=== PATIENT | female | born 1985 | race Caucasian/White ===

== ENCOUNTER → 2016-03-21 | Outpatient (CLI) | payer OTHER ==
[~2016-03-21] MED LIST: CYCL10TA6 PO; IBUP-1050 PO; METH4PAK PO; PHEN-876 PO; SULF800T23 PO
--- NOTE | 2016-03-21 13:32 | DIAGNOSTIC IMAGING REPORT ---
RIBS UNILATERAL WITH PA CHEST CLINICAL HISTORY: Right sided rib pain. COMPARISON STUDY: Chest radiograph March 18, 2016. FINDINGS: There is no pneumothorax or pleural effusion. Lungs are clear. Cardiac size is normal. Mediastinal contours are normal. Pulmonary vascularity is normal. No acute right rib fractures are identified. There are cholecystectomy clips. IMPRESSION: No pneumothorax. No acute right rib fractures. Electronically signed by: Jarvis Pena M.D. 03/21/2016 1:30 PM
== END | disposition home or self-care (01) ==
LOC: C.RAD 12:40
PROVIDERS: ATTEND Internal Medicine
DX: R07.81 Pleurodynia (principal)

== ENCOUNTER → 2016-05-26 | Outpatient (CLI) | payer OTHER ==
[2016-05-26 16:27] LABS: BASO % 0.5 %; BASO ABS # 0.04 K/uL (0-0.2); COMPLETE YES; EOS % 1.8 %; HEMATOCRIT 39.7 % (37-47); IG% 0.3 %; LYMPH % 43.9 %; LYMPH ABS # 3.44 K/uL (1.2-3.4); MEAN CORPUSCULAR HEMOGLOBIN 30.5 pg (25-34); MEAN CORPUSCULAR HGB CONC 34.3 g/dl (32-36); MEAN PLATELET VOLUME 9.5 fL (7.4-10.4); MONO % 7.3 %; NEUT % 46.2 %; PLATELET COUNT 298 K/uL (130-400); RED BLOOD COUNT 4.46 M/uL (4.2-5.4); WHITE BLOOD COUNT 7.84 K/uL (4.8-10.8)
[2016-05-26 16:39] LABS: ALT/SGPT 71 U/L (12-78); BLOOD UREA NITROGEN 7 mg/dl (7-18); CALCIUM 8.7 mg/dl (8.5-10.1); CARBON DIOXIDE 23 mmol/L (21-32); CHLORIDE 112 mmol/L (98-107); CREATININE 0.57 mg/dl (0.60-1.20); GLUCOSE 92 mg/dl (70-99); SODIUM 143 mmol/L (136-145)
[2016-05-26 16:49] LABS: ALB/GLOB RATIO 1.1 (0.9-2); ALKALINE PHOSPHATASE 49 U/L (45-117); AST/SGOT 41 U/L (15-37)
== END | disposition home or self-care (01) ==
LOC: C.LABBFT 12:35
PROVIDERS: ATTEND Internal Medicine
DX: Z00.00 Encounter for general adult medical examination without abnormal findings (principal); R42 Dizziness and giddiness

== ENCOUNTER 2016-10-09 22:23 | Emergency (ER) | payer OTHER ==
[~2016-10-09] VITALS: Ht 149.9 cm; Wt 71.8 kg
[~2016-10-09 22:23] MED LIST changes: -PHEN-876 PO; -SULF800T23 PO
[2016-10-09 22:39] VITALS: TEMP 36.9; Ht 149.9 cm; Wt 71.8 kg
[2016-10-09] MEDS ORDERED: PHEN-876 PO (22:52)
[2016-10-09] MEDS ORDERED: SULF800T23 PO (22:52)
--- NOTE | 2016-10-09 22:53 | EMERGENCY ROOM VISIT NOTE ---
History First contact with patient: 22:42 Chief Complaint: URINARY SYMPTOMS Stated Complaint: UTI - BLADDER INFECTION Nursing Triage Summary: "My urine is cloudy, it enriquez when I pee" sx started 1 week ago History of Present Illness The patient is a 31 year old female who presents to the Emergency Room with complaints of a possible urinary tract infection. The patient states that she has noticed for the past week that her urine has been cloudy and has had a foul odor. She reports that she has had burning with urination. She has felt feverish, but does not have a thermometer at home. She has been taking ibuprofen for symptoms. She does report a history of UTIs and states this feels similar. She denies abdominal pain or upper back pain. She denies any vaginal discharge. Review of Systems A complete 10 point review of systems was reviewed with the patient with pertinent positives and negatives as per history of present illness. All else were negative. Past Medical/Surgical History Surgical Problems: (1) History of cholecystectomy Family History Cancer Gallbladder disease Social History Smoking Status: Current Every Day Smoker Alcohol Use: none Marital Status: in relationship Housing Status: lives with family Occupation Status: employed Current/Historical Medications Scheduled Methylprednisolone (Medrol Dosepak), 1 PKT PO UD Phenazopyridine HCl (Pyridium), 200 MG PO TID Sulfa/Trimethoprim (Bactrim Ds 800MG/160MG), 1 TAB PO BID Scheduled PRN Cyclobenzaprine Hcl (Flexeril), 10 MG PO HS PRN for Sleep Ibuprofen (Advil), 800 MG PO for Pain Physical Exam Vital Signs Date Time Temp Pulse Resp B/P (MAP) Pulse Ox O2 Delivery O2 Flow Rate FiO2 10/09/16 22:39 36.9 62 18 137/82 98 Room Air Physical Exam VITALS: Vitals are noted on the nurse's note and reviewed by myself. Vital signs stable. GENERAL: This is a 31-year-old female, in no acute distress, nondiaphoretic, well-developed well-nourished. HEART: Regular rate and rhythm without murmurs gallops or rubs. LUNGS: Clear to auscultation bilaterally without wheezes, rales or rhonchi. ABDOMEN: Positive bowel sounds x 4. Soft, nontender to palpation. NEURO: Patient was alert and oriented to person place and time. Medical Decision & Procedures Medical Decision Differential diagnosis includes urinary tract infection, vaginal infection, among others. The patient was evaluated as above. Urine dip did show white blood cells. Patient reports her symptoms are similar to previous urinary tract infections. She will be treated with Bactrim and Pyridium pending urine culture. She verbalized understanding of my assessment and treatment plan and was discharged home in good condition. Medication Reconcilliation Current Medication List: was personally reviewed by me Blood Pressure Screening Patient's blood pressure: Normal blood pressure Impression Primary Impression: Symptoms of urinary tract infection Departure Information Dispostion Home / Self-Care Condition GOOD Prescriptions Phenazopyridine HCl (Pyridium) 200 Mg Tab 200 MG PO TID for 2 Days, #6 TAB Prov: Shannon Moreira PA-C 10/09/16 Sulfa/Trimethoprim (Bactrim Ds 800MG/160MG) Tab 1 TAB PO BID for 4 Days, #8 TAB Prov: Shannon Moreira PA-C 10/09/16 Referrals Kathy Pena M.D. (PCP) Patient Instructions My [facility] Additional Instructions You have been treated in the Emergency Department for a Urinary Tract Infection (UTI). You have been prescribed Bactrim to be taken twice daily for a total of 5 days. This is an antibiotic. All antibiotics have the potential to cause diarrhea. Stop this medication and contact a medical provider if you were to develop any significant adverse side effects including: wheezing, shortness of breath, passing out, vomiting, or a diffuse rash. Always take antibiotics as directed and COMPLETE the ENTIRE course regardless of the improvement of your symptoms. You have been prescribed Pyridium to be taken as prescribed. This medicine will help with the urinary symptoms that you have been experiencing. Be aware that Pyridium may turn your urine a red-orange or brown color. This effect is harmless. Drink plenty of water and stay well hydrated. As with any trip to the Emergency Department, you should follow-up with your Primary Care Provider from today's visit. Return to the emergency department if your symptoms persist despite treatment plan outlined above or if the following symptoms occur: increased fevers, chills , low back pain, nausea/vomiting, or blood in your urine.
[2016-10-09] MEDS ORDERED: PHENAZOPYRIDINE HOME PACK 200 MG VIAL PO ONE (23:00)
[2016-10-09] MEDS ORDERED: SEPTRA DS HOME PACK 1 EA VIAL PO ONE (23:00)
[2016-10-09 23:19] VITALS: BP 130/73; PULSE 81; O2SAT 95
== END 2016-10-09 23:19 | disposition home or self-care (01) ==
LOC: C.EDB 22:24 → C.EDD 23:19
DX: R30.0 Dysuria (principal); Z90.49 Acquired absence of other specified parts of digestive tract; Z80.9 Family history of malignant neoplasm, unspecified; F17.210 Nicotine dependence, cigarettes, uncomplicated

== ENCOUNTER 2017-05-03 22:57 | Emergency (ER) | payer OTHER ==
[~2017-05-03] VITALS: Ht 152.4 cm; Wt 74.6 kg
[2017-05-03 23:01] VITALS: Ht 152.4 cm; Wt 74.6 kg
[2017-05-04 01:43] VITALS: BP 103/76; PULSE 74; TEMP 36.6; O2SAT 98
--- NOTE | 2017-05-04 07:02 | DIAGNOSTIC IMAGING REPORT ---
R ELBOW MIN 3 VIEWS ROUTINE CLINICAL HISTORY: right elbow pain pain COMPARISON: None. DISCUSSION: The bones and joint spaces appear intact. There is no evidence of fracture, dislocation or bony disease. There is no evidence for soft tissue swelling. IMPRESSION: Negative study. The above report was generated using voice recognition software. It may contain grammatical, syntax or spelling errors. Electronically signed by: Abimael Woods M.D. 05/04/2017 7:01 AM Dictated Date/Time: 05/04/2017 7:00 AM
--- NOTE | 2017-05-05 04:49 | EMERGENCY ROOM VISIT NOTE ---
ED Visit Note First contact with patient: 23:59 CHIEF COMPLAINT: Elbow pain HISTORY OF PRESENT ILLNESS: This 32-year-old female patient presents to the emergency department complaining of pain in the right elbow for the past 4-5 weeks. The patient rates their pain as dull and 3/10. The patient has taken nothin for relief of the pain. The patient has not had previous fractures to this elbow. The patient does not have any numbness or tingling. The patient denies any other injuries. Her discomfort worsens with certain movements. She works at [employer] and certain lifting and twisting motions worsens the pain. REVIEW OF SYSTEMS: A 6 system review of systems was completed with positives and pertinent negatives listed in the HPI. ALLERGIES: No known allergies MEDICATIONS: No chronic medication PMH: Otherwise healthy SOCIAL HISTORY: Employed and lives locally with family PHYSICAL EXAM: Vital Signs: Reviewed Nurse's notes, vital signs stable. GENERAL : White female, in no acute distress, well-developed, well-nourished. SKIN: The skin was without rashes, erythema, edema, warmth, or bruising. Capillary reflex less than 3 seconds. MUSCULOSKELETAL: There is tenderness over the lateral aspect of the right elbow. There is tenderness with supination of the right elbow. There is no tenderness of the shoulder, wrist, or hand. The patient is able to give a thumbs up, make an OK sign, and a #3 with their fingers. Radial pulse 2+. NEURO: Patient was alert and oriented to person place and time. Normal sensation to light and sharp touch. R ELBOW MIN 3 VIEWS ROUTINE CLINICAL HISTORY: right elbow pain pain COMPARISON: None. DISCUSSION: The bones and joint spaces appear intact. There is no evidence of fracture, dislocation or bony disease. There is no evidence for soft tissue swelling. IMPRESSION: Negative study. EMERGENCY DEPARTMENT COURSE: I examined the patient. An x-ray of the right elbow was reviewed myself and read by radiology and shows no acute process. Overall the patient appears well for discharge home. She may have a lateral epicondylitis or possibly cubital tunnel/carpal tunnel syndrome. I discussed these with the patient and will treat her conservatively with pcp/orthopedic follow-up. The patient was otherwise invited back to the ER with any new, worsening, or concerning symptoms. Problem List Surgical Problems: (1) History of cholecystectomy Status: Resolved Current/Historical Medications No Active Prescriptions or Reported Meds Allergies Coded Allergies: No Known Allergies (Unverified , 05/03/17) Vital Signs Date Time Temp Pulse Resp B/P (MAP) Pulse Ox O2 Delivery O2 Flow Rate FiO2 05/04/17 01:43 36.6 74 20 103/76 98 05/04/17 00:46 82 20 108/60 97 Room Air 05/03/17 23:01 36.6 90 18 130/76 96 Room Air Departure Information Impression Primary Impression: Right elbow pain Dispostion Home / Self-Care Condition GOOD Prescriptions No Active Prescriptions or Reported Meds Forms HOME CARE DOCUMENTATION FORM, IMPORTANT VISIT INFORMATION Patient Instructions My [facility] Additional Instructions You were seen and evaluated today on an emergency basis only. This is not a substitute for, or an effort to provide, complete comprehensive medical care. It is not possible to recognize and treat all injuries or illnesses in a single emergency department visit. For this reason it is recommended that you followup with your primary care physician with any ongoing or persistent symptoms. You are welcome to return to the emergency department anytime with new, worsening, or concerning symptoms.
== END 2017-05-04 01:43 | disposition home or self-care (01) ==
LOC: C.EDB 22:59 → C.EDC 05-04 01:43
DX: M25.521 Pain in right elbow (principal)

== ENCOUNTER → 2017-05-08 | Outpatient (CLI) | payer OTHER | END | disposition home or self-care (01) | LOC: C.LAB 02:54 | DX: Z02.83 Encounter for blood-alcohol and blood-drug test (principal) ==